=== PATIENT | male | born 1980 | race Caucasian/White ===

== ENCOUNTER 2019-12-09 12:07 | Day surgery (SDC) | payer BC ==
[2019-12-08 11:37] VITALS: BMI 34.5
[~2019-12-09 12:07] MED LIST: LACTATED RINGERS 1,000 ML IV SCH
[2019-12-09 12:23] VITALS: RESP 16; TEMP 99
[2019-12-09] MEDS ORDERED: PROPOFOL 10 MG/ML 20 ML VIAL IV ONE (12:59)
--- NOTE | 2019-12-09 13:28 | P.PCN ---
Date of Procedure: 12/09/19 Description of Procedure: BRIEF HISTORY: Patient is a 39-year-old male presenting for outpatient EGD for evaluation of esophageal dysphagia. Patient had previously been seen in the office where he reported 2 episodes of food sticking with the sensation of difficulty swallowing. Food in his esophagus for proximally 5 minutes after eating meat. Symptoms were improved while on PPI therapy. No prior EGD. PROCEDURE PERFORMED: Esophagogastroduodenoscopy with biopsy. PREOPERATIVE DIAGNOSIS: Esophageal dysphagia, GERD. ESTIMATED BLOOD LOSS: Minimal. IV sedation per anesthesia. PROCEDURE: After informed consent was obtained, the patient was brought into the endoscopy unit. IV sedation was administered by Anesthesia under continuous monitoring. Initially the Olympus GIF-190 video endoscope was inserted into the mouth. Esophagus intubated without any difficulty. It was gradually advanced into the stomach and duodenum and carefully examined. The bulb and the second part of the duodenum appeared normal, with biopsies taken. The scope at this time was withdrawn to the stomach, adequately insufflated with air, and upon careful examination, mucosa of the antrum, body, cardia and the fundus appeared normal, except for some mild scattered erythema in the antrum and body suggestive of mild gastritis with biopsies taken. The scope was then withdrawn into the esophagus. The GE junction was located at 39 cm from the incisors, with biopsies taken. The esophagus appeared normal except for some linear referrals suggestive of eosinophilic esophagitis, with mid esophageal biopsies taken to rule out eosinophilic esophagitis. There were no erosions or ulcerations seen and the patient tolerated the procedure well. IMPRESSION: 1. Mild gastritis. 2. Biopsies of the GE junction, midesophagus, antrum and body and duodenum. RECOMMENDATIONS: The findings of this examination were discussed with the patient and his . Okay to resume diet. Continue PPI therapy. Follow up in GI clinic for results of biopsies..
[2019-12-09 14:03] VITALS: BP 124/81; PULSE 77
== END 2019-12-09 14:08 | disposition home or self-care (01) ==
LOC: ORWHC2ENDO 12:07
PROVIDERS: ATTEND Internal Medicine
DX: K29.50 Unspecified chronic gastritis without bleeding (principal); R89.7 Abnormal histological findings in specimens from other organs, systems and tissues; D68.2 Hereditary deficiency of other clotting factors; K21.9 Gastro-esophageal reflux disease without esophagitis; Z88.0 Allergy status to penicillin; Z79.899 Other long term (current) drug therapy; Z79.01 Long term (current) use of anticoagulants; Z87.09 Personal history of other diseases of the respiratory system; Z98.890 Other specified postprocedural states; Z86.718 Personal history of other venous thrombosis and embolism
CPT/HCPCS: 88305; 43239; J2704

== ENCOUNTER → 2020-12-06 | Outpatient (CLI) | payer BC ==
--- NOTE | 2020-12-06 12:10 | XR ---
EXAM TYPE: LUMBAR SPINE X RAY SERIES COMPARISON: NONE HISTORY: Pain TECHNIQUE: 4 views are submitted. FINDINGS: Alignment is anatomic. The pedicles are intact. The transverse processes are intact. There are non specific calcifications in the pelvis. Mild hypertrophic spurring anteriorly at multiple levels. Disc spaces well preserved. There is likely mild degenerative disc disease L5-S1. Question spina bifida o cculta lumbosacral junction. IMPRESSION: 1. Multilevel mild hypertrophic spurring. 2 mild degenerative disc disease L5-S1.
== END | disposition home or self-care (01) ==
LOC: RADXRMAIN 11:10
PROVIDERS: ATTEND Nurse Practitioner
DX: M51.37 Other intervertebral disc degeneration, lumbosacral region (principal); M89.38 Hypertrophy of bone, other site
CPT/HCPCS: 72100